=== PATIENT | female | born 1980 ===

== ENCOUNTER 2017-08-11 15:51 | Outpatient (RCR) | payer BC | END 2017-08-20 | LOC: OT 15:51 | PROVIDERS: ATTEND Specialist | DX: S62.396A Other fracture of fifth metacarpal bone, right hand, initial encounter for closed fracture (principal) ==

== ENCOUNTER 2017-08-26 09:07 | Outpatient (RCR) | payer BC | END 2017-09-19 | LOC: OT 09:07 | PROVIDERS: ATTEND Specialist | DX: S62.306A Unspecified fracture of fifth metacarpal bone, right hand, initial encounter for closed fracture (principal) | CPT/HCPCS: 97139 ==